=== PATIENT | male | born 1955 | race Caucasian/White ===

== ENCOUNTER 2017-07-22 11:25 | Emergency (ER) | payer OTHER ==
[~2017-07-22] VITALS: Ht 182.9 cm; Wt 88.5 kg
[2017-07-22 11:39] VITALS: BP 175/86
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
[2017-07-22] MEDS ORDERED: ORPHENADRINE C100 MG PO (12:08)
[2017-07-22] MEDS ORDERED: NAPROSYN500 M1 PO (12:08)
== END 2017-07-22 12:10 ==
LOC: ERH 11:25
DX: S29.012A Strain of muscle and tendon of back wall of thorax, initial encounter (principal); V49.40XA Driver injured in collision with unspecified motor vehicles in traffic accident, initial encounter; Y92.9 Unspecified place or not applicable